=== PATIENT | female | born 1970 | race African-American/Black ===

== ENCOUNTER → 2019-08-10 | Outpatient (CLI) | payer BC, OTHER ==
[~2019-08-10] MED LIST: CEPH250C PO; GADOTERATE 5 MMOL/10ML VIAL. IVP ONE
--- NOTE | 2019-08-10 17:09 | KCIC ---
MRI abdomen with and without contrast: Clinical indications: Liver abnormality seen on recent CT study. COMPARISON: CT study of the abdomen dated August 06, 2019.. Technique: T1 and T2 weighted MRI sequences of the abdomen was performed in the axial and coronal planes. In phase and out of phase MRI sequences were performed as well. After IV infusion of 18 cc of Dotarem, multiphasic postcontrast T1 weighted MRI sequences of the abdomen were performed. Findings: There is a large mass lesion of the posterior aspect of the right lobe of the liver which correspond to the CT finding. This mass lesion measures 11.6 cm in transverse dimension and 10.3 cm in AP dimension. There is peripheral nodular enhancement on the arterial phase with progressive centripetal enhancement of the lesion. The lesion does not completely enhance centrally. There is a central stellate scar which is bright on T2-weighted images. The findings are consistent with a large cavernous hemangioma. The spleen is not enlarged. The spleen is homogeneous in appearance. The pancreas is homogeneous in appearance. The gallbladder appears normal. No abnormal dilatation of the intrahepatic or extrahepatic biliary tree is seen. No adrenal mass is evident. Both kidneys are normal. No focal aneurysmal dilatation of the abdominal aorta is seen. No enlarged abdominal lymphadenopathy is seen. No ascites is seen.. IMPRESSION: Large hepatic mass represents a cavernous hemangioma. Electronically signed by: Romeo Shepherd MD (08/10/2019 5:06 PM) [place] [id number]
== END | disposition home or self-care (01) ==
LOC: KCIC MRI 15:11
PROVIDERS: ATTEND Physician Assistant
DX: D18.09 Hemangioma of other sites (principal); R16.0 Hepatomegaly, not elsewhere classified; K76.9 Liver disease, unspecified
CPT/HCPCS: 74183; A9575